=== PATIENT | female | born 1980 | race Caucasian/White ===

== ENCOUNTER 2021-06-13 14:21 | Emergency (ER) | payer MEDICAID ==
[~2021-06-13] VITALS: Ht 154.9 cm; Wt 60.8 kg
[2021-06-13 14:21] VITALS: BP_SYST 121
[2021-06-13] MEDS ORDERED: ONDANSETRON 4 MG ODT TAB PO ONE (15:00)
[2021-06-13] MEDS ORDERED: ONDA4TAB5 PO (15:29)
[2021-06-13 15:45] VITALS: BP_SYST 135
== END 2021-06-13 15:45 | disposition home or self-care (01) ==
LOC: SED 14:21
DX: R11.2 Nausea with vomiting, unspecified (principal); Z88.5 Allergy status to narcotic agent
CPT/HCPCS: 81002; 81025; 99283; Q0162

== ENCOUNTER 2022-05-02 18:14 | Emergency (ER) | payer MEDICAID ==
[~2022-05-02] VITALS: Ht 154.9 cm; Wt 62.1 kg
[~2022-05-02 18:14] MED LIST: ONDA4TAB5 PO
[2022-05-02 18:22] VITALS: BP_SYST 129
--- NOTE | 2022-05-02 19:25 | NUR ---
PT SEEN AND EXAMINE BY DR. PARRISH.
[2022-05-02] MEDS ORDERED: IBUPROFEN 600 MG TABLET PO ONE (19:30)
--- NOTE | 2022-05-02 20:01 | NUR ---
placed in chair for evaluation.
--- NOTE | 2022-05-02 20:10 | NUR ---
Patient brought in complaining of right arm pain. patient reports she fell of skateboard and complaining of left thumb pain. brought in by family.
--- NOTE | 2022-05-02 21:11 | NUR ---
PAWAN WRAP APPLIED TO RIGHT ELBOW AND ARM SLING APPLIED TO RIGHT ARM.
[2022-05-02] MEDS ORDERED: NAPR-1172 PO (21:50)
[2022-05-02 21:57] VITALS: BP_SYST 129
--- NOTE | 2022-05-02 21:57 | NUR ---
Patient given written and verbal discharge instructions and verbalizes understanding. ER MD discussed with patient the results and treatment provided. Patient in stable condition. ID arm band removed. Rx of naproxen given. Patient educated on pain management and to follow up with PMD. Pain Scale 0/10 Opportunity for questions provided and answered. Medication side effect fact sheet provided.
== END 2022-05-02 21:57 | disposition home or self-care (01) ==
LOC: SED 18:14
DX: S52.121A Displaced fracture of head of right radius, initial encounter for closed fracture (principal); Z79.899 Other long term (current) drug therapy; V00.131A Fall from skateboard, initial encounter; Y93.89 Activity, other specified; Y92.89 Other specified places as the place of occurrence of the external cause; Y99.8 Other external cause status
CPT/HCPCS: 71045; 73090; 73140-TC; 99284